=== PATIENT | male | born 1965 | race Hispanic/Latino ===

== ENCOUNTER 2022-02-05 11:03 | Emergency (ER) | payer SELFPAY ==
[~2022-02-05 11:03] MED LIST: Iopamidol 370 76% 100 ML VIAL ONE
[2022-02-05 11:38] LABS: Bilirubin Small (Negative); Blood, Urine Negative (Negative); Clarity Clear (Clear); Glucose, Urine (Dipstick) 500 mg/dL (Negative); Ketone, Urine 15 mg/dL (Negative); Leukocyte Negative (Negative); Nitrite Negative (Negative); Protein, Urine (Dipstick) Trace mg/dL (Neg-Trace)
[2022-02-05 11:40] LABS: White Blood Cell (WBC) Count 12.4 thou/uL (4.8-10.8)
[2022-02-05 11:41] LABS: #Basophils 0.1 thou/uL (0.0-0.2); #Lymphocytes 1.9 thou/uL (1.20-3.40); #Monocytes 1.3 thou/uL (0.11-0.59); #Neutrophils 9.1 thou/uL (1.40-6.50); %Basophils 0.8 % (0.0-1.0); %Eosinophils 0.4 % (0.0-10.0); %Lymphocytes 15.4 % (21.0-51.0); %Monocytes 10.3 % (0.0-10.0); %Neutrophils 73.2 % (42.0-75.0); Hemoglobin 13.8 g/dL (14.0-18.0); Mean Corpuscular HGB CONC 32.5 g/dL (32.0-36.0); Mean Corpuscular Hemoglobin 30.1 pg (27.0-31.0); Mean Corpuscular Volume 92.5 fL (78.0-98.0); Platelet Count 236 thou/uL (130-400); RBC Distribution Width 11.6 % (11.5-14.5)
[2022-02-05 11:50] LABS: ALT (SGPT) 18 U/L (8-55); AST (SGOT) 11 U/L (5-34); Albumin 3.6 g/dL (3.5-5.0); Alkaline Phosphatase 75 U/L (40-110); Anion Gap 14 mmol/L (10-20); BUN (Urea Nitrogen) 21 mg/dL (8.4-25.7); Bilirubin, Total 0.8 mg/dL (0.2-1.2); Calc. Creatinine Clearance 0 mL/min (70-130); Calcium 9.1 mg/dL (7.8-10.44); Carbon Dioxide 25 mmol/L (22-29); Chloride 101 mmol/L (98-107); Estimated GFR 91; Globulin 3.4 g/dL (2.4-3.5); Glucose 344 mg/dL (70-105); Sodium 136 mmol/L (136-145)
[2022-02-05] MEDS ORDERED: Sodium Chloride 0.9% 1,000 ML ONE (12:10)
[2022-02-05 13:54] LABS: SARS-CoV-2 NAA Rapid Test Not Detected (NotDetected)
[2022-02-05] MEDS ORDERED: Sodium Chloride 0.9% 100 ML ONE (14:06)
[2022-02-05] MEDS ORDERED: Piperacillin/Tazobactam 4.5 GM VIAL ONE (14:06)
[2022-02-05] MEDS ORDERED: Morphine 4 MG/ML VIAL ONE (15:24)
[2022-02-05] MEDS ORDERED: Ondansetron PF 4 MG/2 ML Vial ONE (15:25)
== END 2022-02-05 16:00 | disposition short-term general hospital (02) ==
LOC: NAV ERS 11:03
DX: K35.80 Unspecified acute appendicitis (principal); E11.65 Type 2 diabetes mellitus with hyperglycemia; Z20.822 Contact with and (suspected) exposure to COVID-19
CPT/HCPCS: 36416; 74177; 80053; 81003; 83690; 85025; 96361; 96365; 96375; J2270; J2405; J2543; J3490; J7050; Q9967; U0002